=== PATIENT | female | born 1970 | race Caucasian/White ===

== ENCOUNTER → 2017-06-29 | Outpatient (CLI) | payer MEDICARE, OTHER ==
[~2017-06-29] MED LIST: AMOCLA500 PO; ASCO500 PO; CIPR500 PO; FERR325 PO; LACTOBACILLUS PO; LISI20 PO; LISI5 PO; METO50 PO; NITR100 PO; PANT40 PO; [UNRECOGNIZED DRUG - OTHER]; [UNRECOGNIZED DRUG - REMARK]
== END ==
LOC: LAB SHORT 15:56 → LAB 15:56
PROVIDERS: Nurse Practitioner Women's Health
DX: Z12.4 Encounter for screening for malignant neoplasm of cervix (principal)
CPT/HCPCS: 87624; G0123

== ENCOUNTER 2021-01-11 20:44 | Emergency (ER) | payer MEDICARE, OTHER ==
[~2021-01-11] VITALS: Ht 170.2 cm; Wt 90.7 kg
[~2021-01-11 20:44] MED LIST changes: -LISI20 PO; -PANT40 PO
[2021-01-11 21:42] LABS: BASOPHILS ABSOLUTE AUTO 0.01 K/mm3 (0.00-0.23); BASOPHILS PERCENT AUTO 0 % (0-2); EOSINOPHILS PERCENT AUTO 0 % (0-6); Hematocrit 35.1 % (33.0-51.0); Hemoglobin 11.4 g/dL (11.5-16.0); IMMATURE GRAN ABSOLUTE AUTO 0.03 K/mm3 (0.00-0.10); IMMATURE GRAN PERCENT AUTO 1 % (0-1); LYMPHOCYTES ABSOLUTE AUTO 0.49 K/mm3 (0.84-5.20); LYMPHOCYTES PERCENT AUTO 9 % (21-46); MONOCYTES ABSOLUTE AUTO 0.15 K/mm3 (0.16-1.47); MONOCYTES PERCENT AUTO 3 % (4-13); Mean Corpuscular HGB 26.7 pg (26.0-34.0); Mean Corpuscular HGB Conc 32.5 g/dL (31.5-36.5); Mean Corpuscular Volume 82 fL (80-100); Mean Platelet Volume 10.3 fL (9.1-12.4); NEUTROPHILS ABSOLUTE AUTO 4.96 K/mm3 (1.96-9.15); NEUTROPHILS PERCENT AUTO 88 % (41-73); Platelet Count 125 K/mm3 (150-400); RDW Coefficient Variation 13.9 % (11.7-14.2); RDW Standard Deviation 41.9 fL (35.1-46.3); Red Blood Cell Count 4.27 M/mm3 (3.80-5.20); White Blood Cell Count 5.64 K/mm3 (4.00-11.30)
[2021-01-11 21:55] LABS: Alanine Aminotransfer (ALT/SGP 49 U/L (12-78); Albumin, Blood 2.5 g/dL (3.4-5.0); Albumin/Globulin Ratio 0.6 (0.8-1.8); Alk Phos 76 U/L (50-136); Anion Gap 9 mmol/L (6-16); Aspartate Aminotrans (AST/SGOT 62 U/L (12-37); Bilirubin, Total 0.4 mg/dL (0.1-1.0); Blood Urea Nitrogen 29 mg/dL (8-24); Bun/Creatinine Ratio 25.9 (12.0-20.0); CO2, Blood 22 mmol/L (21-32); Calcium, Blood 8.2 mg/dL (8.5-10.1); Chloride, Blood 104 mmol/L (98-108); Creatinine, Blood 1.12 mg/dL (0.40-1.00); Globulin, Blood 4.5 g/dL (2.2-4.0); Glomerular Filtration Rate 51 (60-); Glucose, Blood 114 mg/dL (70-99); Potassium, Blood 4.1 mmol/L (3.5-5.5); Sodium, Blood 135 mmol/L (136-145); Troponin I <0.015 ng/mL (0.000-0.040)
[2021-01-11 22:33] LABS: SARS-Cov-2 (COVID-19) PCR, MMC POSITIVE (NEGATIVE)
[2021-01-11] MEDS ORDERED: CEPH500 PO (23:56)
[2021-01-13] MEDS ORDERED: TROSPIUM CHLORI20 M1 PO (14:22)
[2021-01-13] MEDS ORDERED: METO25 PO (14:22)
[2021-01-13] MEDS ORDERED: PANT40 PO (14:23)
[2021-01-13] MEDS ORDERED: Prinivil10 MG PO (14:23)
[2021-01-13] MEDS ORDERED: Nitrofurantoin100 M1 PO (14:24)
[2021-01-13] MEDS ORDERED: cranberry PO (15:27)
[2021-01-13] MEDS ORDERED: NAPR220 PO (15:27)
[2021-01-13] MEDS ORDERED: glucosamine PO (15:28)
== END 2021-01-12 04:30 | disposition home or self-care (01) ==
LOC: ER 20:44
PROVIDERS: Emergency Medicine
DX: U07.1 COVID-19 (principal); N39.0 Urinary tract infection, site not specified; Z79.899 Other long term (current) drug therapy; I10 Essential (primary) hypertension
CPT/HCPCS: 71045; 80053; 83880; 84484; 85025; 93005; 93010; 99285-25; A9270; P9612; U0004

== ENCOUNTER 2021-01-13 11:47 | Inpatient (IN) | payer MEDICARE, OTHER ==
[~2021-01-13] VITALS: Ht 165.1 cm; Wt 99.9 kg
[~2021-01-13 11:47] MED LIST changes: +CEPH500 PO
[2021-01-13 12:54] LABS: BASOPHILS ABSOLUTE AUTO 0.02 K/mm3 (0.00-0.23); BASOPHILS PERCENT AUTO 0 % (0-2); EOSINOPHILS PERCENT AUTO 0 % (0-6); Hematocrit 36.9 % (33.0-51.0); Hemoglobin 11.9 g/dL (11.5-16.0); IMMATURE GRAN ABSOLUTE AUTO 0.11 K/mm3 (0.00-0.10); IMMATURE GRAN PERCENT AUTO 1 % (0-1); LYMPHOCYTES ABSOLUTE AUTO 0.56 K/mm3 (0.84-5.20); LYMPHOCYTES PERCENT AUTO 7 % (21-46); MONOCYTES ABSOLUTE AUTO 0.24 K/mm3 (0.16-1.47); MONOCYTES PERCENT AUTO 3 % (4-13); Mean Corpuscular HGB 26.7 pg (26.0-34.0); Mean Corpuscular HGB Conc 32.2 g/dL (31.5-36.5); Mean Corpuscular Volume 83 fL (80-100); Mean Platelet Volume 10.2 fL (9.1-12.4); NEUTROPHILS ABSOLUTE AUTO 7.72 K/mm3 (1.96-9.15); NEUTROPHILS PERCENT AUTO 89 % (41-73); Platelet Count 181 K/mm3 (150-400); RDW Coefficient Variation 14.1 % (11.7-14.2); RDW Standard Deviation 42.7 fL (35.1-46.3); Red Blood Cell Count 4.45 M/mm3 (3.80-5.20); White Blood Cell Count 8.65 K/mm3 (4.00-11.30)
[2021-01-13 13:02] LABS: Alanine Aminotransfer (ALT/SGP 49 U/L (12-78); Albumin/Globulin Ratio 0.4 (0.8-1.8); Alk Phos 108 U/L (50-136); Anion Gap 13 mmol/L (6-16); Aspartate Aminotrans (AST/SGOT 53 U/L (12-37); Bilirubin, Total 0.5 mg/dL (0.1-1.0); Blood Urea Nitrogen 29 mg/dL (8-24); Bun/Creatinine Ratio 47.1 (12.0-20.0); CO2, Blood 18 mmol/L (21-32); Calcium, Blood 6.5 mg/dL (8.5-10.1); Chloride, Blood 106 mmol/L (98-108); Creatinine, Blood 0.62 mg/dL (0.40-1.00); Ferritin, Serum 854 ng/mL (8-252); Globulin, Blood 5.3 g/dL (2.2-4.0); Glomerular Filtration Rate >60 (60-); Glucose, Blood 115 mg/dL (70-99); Lactate Dehydrogenase (Ld),Bld 607 U/L (100-240); Potassium, Blood 4.1 mmol/L (3.5-5.5); Sodium, Blood 137 mmol/L (136-145); Total Protein, Blood 7.3 g/dL (6.4-8.2)
[2021-01-13] MEDS ORDERED: METO25 PO (14:22)
[2021-01-13] MEDS ORDERED: TROSPIUM CHLORI20 M1 PO (14:22)
[2021-01-13] MEDS ORDERED: PANT40 PO (14:23)
[2021-01-13] MEDS ORDERED: Prinivil10 MG PO (14:23)
[2021-01-13] MEDS ORDERED: Nitrofurantoin100 M1 PO (14:24)
[2021-01-13] MEDS ORDERED: NAPR220 PO (15:27)
[2021-01-13] MEDS ORDERED: AZO CRANBERRY PO (15:27)
[2021-01-13] MEDS ORDERED: GLUCOSAMINE-CH1 EAC7 PO (15:28)
--- NOTE | 2021-01-13 18:44 | NUR ---
PATIENT ARRIVED TO UNIT APPROX 1700. SHE IS A PARAPLEGIC PARALYZED BELOW THE WAIST. PATIENT LIVES ALONE. SHE IS ABLE TO MANAGE COOKING COLEANING AND ALL HER ADL'S BY HERSELF. SHE HAS A MOM AND STEPDAD HER ASSIST HER SOMETIMES HOWEVER THEY HAVE COVID AND ARE UNABLE TO ASSIST HER NOW. SHE IS AO X 3. PATIENT DENIES ANY PAIN OR DISCOMFORT. SHE IS ON 4 LITERS O2. SHE TAKES HER PILLS WITH WATER. HAS ONE IV 20 GAUGE IN HER RIGHT FOREARM. PATIENT HAS A LARGE DECUBITUS ULCER ON HER LEFT BUTTOCK PICS ARE TAKEN AND WILL BE PLACED IN HER CHART. SHE HAS TWO SMALL SORES ON HER BILATERAL HIPS THAT ARE AT BELT LINE. PICS ARE TAKEN ALSO. REPORT AND HAND OFF TO [facility] RN AT SHIFT CHANGE.
[2021-01-13 22:47] LABS: Source, Urine Clean Catch
[2021-01-13 22:53] LABS: Bilirubin, Urine Neg (Neg); Blood, Urine 1+ (Neg); Glucose Qualitative, Urine Neg (Neg); Ketones, Urine Neg (Neg); Leukocyte Esterase, Urine 1+ (Neg); Nitrite, Urine Neg (Neg); Protein, Urine 2+ (Neg); Urobilinogen, Urine NORM (Normal)
[2021-01-13 22:55] LABS: Appearance, Urine Clear (Clear); Color, Urine Yellow (P-Yellow)
[2021-01-13 22:59] LABS: Red Blood Cells, Urine 0-2 /hpf (0-2); Squamous Epithelial Cells Few /hpf (Few)
[2021-01-13 23:00] LABS: Bacteria Few /hpf
--- NOTE | 2021-01-14 04:23 | NUR ---
SHIFT SUMMARY A/OX4, PLEASANT AND COOPERATIVE WITH CARE. PARAPLEGIC, W/C BOUND AT BASELINE. PT LIVES AT HOME ALONE. DECUBUTIS ULCER TO BUTTOCKS UPON ADMIT, PICTURES IN CHART. MARCELO PATENT AND DRAINING TO GRAVITY. CURRENTLY ON 4L VIA NC. VSS, NO ACUTE CHANGES AT THIS TIME. BED IN LOWEST POSITION WITH CALL LIGHT IN REACH. WILL CONTINUE TO MONITOR AND REPORT TO ONCOMING RN.
[2021-01-14 04:36] LABS: Hematocrit 35.5 % (33.0-51.0); Hemoglobin 11.3 g/dL (11.5-16.0); Mean Corpuscular HGB 26.2 pg (26.0-34.0); Mean Corpuscular HGB Conc 31.8 g/dL (31.5-36.5); Mean Corpuscular Volume 82 fL (80-100); Mean Platelet Volume 9.6 fL (9.1-12.4); Platelet Count 182 K/mm3 (150-400); RDW Coefficient Variation 14.2 % (11.7-14.2); RDW Standard Deviation 42.6 fL (35.1-46.3); Red Blood Cell Count 4.31 M/mm3 (3.80-5.20); White Blood Cell Count 5.42 K/mm3 (4.00-11.30)
[2021-01-14 05:20] LABS: Anion Gap 10 mmol/L (6-16); Blood Urea Nitrogen 20 mg/dL (8-24); Bun/Creatinine Ratio 29.3 (12.0-20.0); CO2, Blood 20 mmol/L (21-32); Chloride, Blood 108 mmol/L (98-108); Creatinine, Blood 0.68 mg/dL (0.40-1.00); Glomerular Filtration Rate >60 (60-); Glucose, Blood 134 mg/dL (70-99); Potassium, Blood 4.6 mmol/L (3.5-5.5); Sodium, Blood 138 mmol/L (136-145)
--- NOTE | 2021-01-14 18:30 | NUR ---
DAY SHIFT SUMMARY. PATIENT HAD BED BATH TODAY. SHE WORKED WITH BOTH PT AND OT. SHE TOLERATED MOVING WELL. SATS WERE DROPPING INTO THE HIGH 70'S ON 4 LITERS. OXYMIZER WAS BROUGHT TO ROOM AND PAITENT NOW ON 10 LITERS OXYMIZER. WHEN SHE SITS STRAIGHT UP IN BED HER SATS TEND TO DROP INTO THE HIGH 80'S. SHE IS AO X 4 HAS PLEASANT AFFECT AND IS COOPERATIAVE WITH CARE. DRESSING TO LEFT BUTTOCK REMAINS CLEAN DRY AND INTACT. WILL CONTINUE TO MONITOR THIS PATIENT CLOSELY UNTIL HAND OFF AT SHIFT CHANGE.
--- NOTE | 2021-01-15 06:50 | NUR ---
THREAD PULLING MACHINE ATTENDANT SUMMARY patient struggled with her high flow 02 a good part of the night. she was able to maintain her saturations betweek 90-93% on 9 liters until she started falling asleep. Janice had no complaints of pain, just dry mouth and throat. This RN called RT about putting a bubbler on her o2 for comfort. around this time, the patient's 02 needs began to increase. RT was called again, and 02 was increased from 10 - 15 liters. with high flow and a non re breather mask. At the end of the shift, patient wasa wearing a BIPAP machine with settings of 18/10, resp of 16 and 90%. Janice stated she was ok and comfortable wearing the mask. saturations have elevated to 95-98%
--- NOTE | 2021-01-15 17:01 | NUR ---
SUMMARY- PT A/O X4, TAKEN OFF BIPAP THIS AM FOR BREAKFAST ONTO HIGHFLOW 15L. DR TEJEDA INSTRUCTED TO PLACE PT ON HUMIDIFIED HIGHFLOW, PT STARTED AT 30%/80L FLOW AND WEANED DOWN THROUGHOUT THE DAY TO 30/60 AND SATTING 95%- DESATS TO 85% AT THE LOWEST WITH EXERTIONAL ACTIVITY TURNING IN BED AND RECOVERS IN A FEW MINUTES. PT LUNGS HAVE CRACKLES BIBASILAR, HAS A DRY COUGH STATES NOT MUCH PRODUCTION. PT HAS MEPILEX INTACT TO L GLUT. GIVEN BED BATH AND LININ CHANGE, PT VERY EXHAUSTED WITH MIN ACTIVITY. LIMITED PT/OT TO BED STRENGTH TRAINING. GIVEN SENOKOT TO STIM BM, LAST BM 01/10, WILL WIVE OIL ENEMA THIS PM TO AID IN MOVEMENT. PT STATES SHE WAITS ABOUT 5 DAYS AT HOME AND DOES A SELF DIGBM REMOVAL.
--- NOTE | 2021-01-16 04:00 | NUR ---
summary pt continues to be constipated despite ordered tx. pt bowels tones are present and have increased during shift. pt reports passing gas. pt breathing is better with periods of exertional sob. pt spo2 >90. pt call light in reach.
--- NOTE | 2021-01-16 08:00 | NUR ---
PT PLEASANT COOP A/O X3, PARAPLEGIC. STATES NO FEELING DISTAL OF BELLY BUTTON. FOOT DROP NOTED. P/P PRESENT BUT LIGHT. NO EDEMA NOTED. H/R REG, NO MURMER NOTED. NO TELE. LUNGS CRACKLES T/O PRESENTLY ON AIRVO SETTNGS. 30L / 70 FIO2. RESP EASY, UNLABORED. ABLE TO TALK NORMAL SENTENCES. PLEASANT. BT X4 LAST BM FEW DAYS, STATES ONLY MOVEMENTS 4-5 DAYS NORMAL. DUE NOW. VOIDS MARCELO CATH, DRAINING YELLOW FLUID. BED IN LOW POSITION, CALL LITE IN REACH, CALLS APPROP
[2021-01-16 09:01] LABS: BASOPHILS ABSOLUTE AUTO 0.03 K/mm3 (0.00-0.23); BASOPHILS PERCENT AUTO 0 % (0-2); EOSINOPHILS PERCENT AUTO 0 % (0-6); Hematocrit 37.9 % (33.0-51.0); Hemoglobin 12.1 g/dL (11.5-16.0); IMMATURE GRAN ABSOLUTE AUTO 0.26 K/mm3 (0.00-0.10); IMMATURE GRAN PERCENT AUTO 2 % (0-1); LYMPHOCYTES PERCENT AUTO 7 % (21-46); MONOCYTES ABSOLUTE AUTO 0.78 K/mm3 (0.16-1.47); MONOCYTES PERCENT AUTO 7 % (4-13); Mean Corpuscular HGB 26.2 pg (26.0-34.0); Mean Corpuscular HGB Conc 31.9 g/dL (31.5-36.5); Mean Corpuscular Volume 82 fL (80-100); Mean Platelet Volume 9.1 fL (9.1-12.4); NEUTROPHILS ABSOLUTE AUTO 10.04 K/mm3 (1.96-9.15); NEUTROPHILS PERCENT AUTO 84 % (41-73); Platelet Count 325 K/mm3 (150-400); RDW Standard Deviation 41.8 fL (35.1-46.3); Red Blood Cell Count 4.61 M/mm3 (3.80-5.20); White Blood Cell Count 11.91 K/mm3 (4.00-11.30)
[2021-01-16 09:17] LABS: Albumin, Blood 2.1 g/dL (3.4-5.0); Anion Gap 8 mmol/L (6-16); Blood Urea Nitrogen 24 mg/dL (8-24); Bun/Creatinine Ratio 40.1 (12.0-20.0); CO2, Blood 24 mmol/L (21-32); Calcium, Blood 8.9 mg/dL (8.5-10.1); Chloride, Blood 102 mmol/L (98-108); Glomerular Filtration Rate >60 (60-); Glucose, Blood 248 mg/dL (70-99); Phosphorus, Blood 2.6 mg/dL (2.5-4.9); Potassium, Blood 4.6 mmol/L (3.5-5.5); Sodium, Blood 134 mmol/L (136-145)
--- NOTE | 2021-01-16 13:20 | NUR ---
RT CAME FROM ROOM. PT O2 NEEDS INCREASING. MOVED FROM 30L TO 40L. 80% TO 100% FIO2. PT RESP WERE 28-30. NOW SOME BETTER AT 24-26. RT ASKS PT MOVED TO PCU. CALLED, AND SHE AGREES . CHARGE NOTIFIED. WILL NOTIFIY WHEN BED AVAIL.
--- NOTE | 2021-01-16 15:22 | NUR ---
LEAD WEB DEVELOPER CALLED, OKAYED MOVE TO ICU 11, NO BEDS IN PCU. DISCUSSED WITH PT TO UPDATE SITUATION. SHE STATES UNDERSTANDING. CALLED REPORT TO CAROL FORD RN. PT TRANSFERRED TO ICU AT 1450
--- NOTE | 2021-01-16 17:57 | NUR ---
PT. TRANSFERED FROM MEDICAL FLOOR AROUND 1600. ON AIRVO 40L 80%, DIMINISHED BREATH SOUNDS BILATERALLY. NONPRODUCTIVE COUGH, DESATS WITH COUGHING. RESPIRATORY RATE NORMAL NO SHORTNESS OF BREATH REPORTED. CT PE STUDY COMPLETED. TRANSPORTED ON NON-REBREATHER AT 15L. LEFT BUTTOCK WOUND CLEANSED AND DRESSED. A&O X4. PARAPLEGIC, MOVES BILATERAL UPPER EXTREMETIES EQUALLY. TURNED Q2. SINUS RHYTHM. HYPERTENSIVE - TREATED WITH HYDRALAZINE. NO COMPLAINTS OF PAIN. MARCELO CATHATER DRAINING CLEAR YELLOW URINE. NO BM THIS SHIFT. PO FLUIDS ENCOURAGED.
--- NOTE | 2021-01-17 00:42 | NUR ---
SAMANTHA WAS TURNED AGAIN AND EXPRESSED HER DESIRE FOR PAIN MEDICATION HER LOW BACK WAS HURTING, SHE ONLY HAD TYLENOL ON HER MAR SO WAS CALLED. HE ORDERED FENTANYL FOR HER. SHE SAID SHE DID BELIEVE AT SOME POINT SHE HAD SOME FENTANYL BUT SHE DIDN'T REALLY REMEMBER. FENTANYL 50MCG GIVEN PER ORDER. WILL CONTINUE TO WATCH HER BREATHING AND SATURATIONS. NO OTHER CHANGES FROM HER INITIAL ASSESSMENT.
[2021-01-17 03:54] LABS: BASOPHILS ABSOLUTE AUTO 0.03 K/mm3 (0.00-0.23); BASOPHILS PERCENT AUTO 0 % (0-2); EOSINOPHILS ABSOLUTE AUTO 0.05 K/mm3 (0.00-0.68); EOSINOPHILS PERCENT AUTO 0 % (0-6); Hematocrit 37.1 % (33.0-51.0); Hemoglobin 11.9 g/dL (11.5-16.0); IMMATURE GRAN ABSOLUTE AUTO 0.35 K/mm3 (0.00-0.10); IMMATURE GRAN PERCENT AUTO 3 % (0-1); LYMPHOCYTES PERCENT AUTO 9 % (21-46); MONOCYTES PERCENT AUTO 5 % (4-13); Mean Corpuscular HGB 26.4 pg (26.0-34.0); Mean Corpuscular HGB Conc 32.1 g/dL (31.5-36.5); Mean Corpuscular Volume 82 fL (80-100); Mean Platelet Volume 8.8 fL (9.1-12.4); NEUTROPHILS ABSOLUTE AUTO 9.48 K/mm3 (1.96-9.15); NEUTROPHILS PERCENT AUTO 82 % (41-73); Platelet Count 303 K/mm3 (150-400); RDW Coefficient Variation 13.6 % (11.7-14.2); RDW Standard Deviation 40.7 fL (35.1-46.3); Red Blood Cell Count 4.51 M/mm3 (3.80-5.20); White Blood Cell Count 11.51 K/mm3 (4.00-11.30)
[2021-01-17 04:15] LABS: Anion Gap 6 mmol/L (6-16); Blood Urea Nitrogen 21 mg/dL (8-24); Bun/Creatinine Ratio 33.3 (12.0-20.0); CO2, Blood 27 mmol/L (21-32); Calcium, Blood 8.9 mg/dL (8.5-10.1); Chloride, Blood 100 mmol/L (98-108); Creatinine, Blood 0.63 mg/dL (0.40-1.00); Glomerular Filtration Rate >60 (60-); Glucose, Blood 126 mg/dL (70-99); Phosphorus, Blood 2.8 mg/dL (2.5-4.9); Potassium, Blood 4.6 mmol/L (3.5-5.5); Sodium, Blood 133 mmol/L (136-145)
--- NOTE | 2021-01-17 04:38 | NUR ---
SAMANTHA HAS DONE WELL SINCE RECEIVING THE FENTANYL, SHE HAS RESTED WELL EVEN WITH LAB DRAWS AND BODY SHIFTING. SHE SAID THE FENTANYL HAS IMPROVED THE PAIN IN HER BACK, SHE HAD KEPT HER SATS >90% WHILE SLEEPING WELL.
--- NOTE | 2021-01-17 06:11 | NUR ---
FARIHA HAS CONTINUED TO DO WELL WITH RESTING, SHE CONTINUES TO SAT WELL >90% SHE TOLERATES ORAL MEDS WELL, URINE OUTPUT GOOD, IV FLUSHES WELL. WILL REPORT OFF TO DAY SHIFT.
--- NOTE | 2021-01-17 09:28 | NUR ---
WENT INTO PATEINT ROOM AT 0740 AFTER REPORT FROM PIPELINE OPERATOR RN. PATIENT WAS IN QUITE A BIT OF PAIN 9/10 GENERALIZED ALL OVER. SHE WAS BOOSTED UP IN BED AND PUT SUPINE, RAISED HOB >30 FOR BREAKFAST. NEURO SHE IS INTACT, A & O. SHE IS A PARAPELEGIC AND DOES NOT MOVE BILAT LOWER EXTREMETIES. JENNIFER. CARDIAC IN NSR 80'S, BP 125/70. PPP. NO NOTED EDEMA. LUNGS ARE DIM THROUGH OUT. SHE IS ON HFNC 40 LITERS 80%. WITHOUT PAIN MEDS ON BOARD HER SPO2 86-88%, ONCE GIVEN PAIN MEDS HER SPO2 92-94%. HYPO ACTIVE BOWEL TONES, NO BM IN SEVERAL DAYS, GIVEN SENOKOT WITH MORNING TO HELP. SHE IS NOT VERY HUNGRY AND JUST PICK AT HER BREAKFAST. SHE WAS ENCOURAGED TO TRY AND EAT SOME PROTEIN. SHE HAS A MARCELO CATH IN PLACE, LIGHT YELLOW URINE IN BAG. SHE HAS A WOUND TO LEFT BUTTOCK THAT HAS A DRESSING IN PLACE. SHE IS NOTED TO HAVE FOOT DROP.
--- NOTE | 2021-01-17 13:35 | NUR ---
PT WORKING WITH PATIENT IN BED. SHE WAS PRE-MEDICATED 30 MINUTES PRIOR TO HELP WITH ACTIVITY.
--- NOTE | 2021-01-17 16:49 | NUR ---
NO REAL CHANGES DURNING THE DAY. WITH ACTIVITY PATIENT DESTATS DOWN TO ABOUT 88%. HER OXYGEN LEVELS ARE BETTER WHEN HER PAIN IS MANAGED. SHE HAS BEEN HAS RECIEVED 50 MCG FENTANYL IVP Q4 HR. ALSO, TYLENOL 650 MG PO Q6 HR. SHE WAS TURNED Q2 HR WITH HELP FROM LIFT. SHE HAS A LARGE BED SORE ON HER LEFT BUTTOCK DOWN A COUPLE LAYERS OF TISSUE. SHE GOT A BATH AND FULL LINEN CHANGE THIS AFTERTOON. SHE HAS VOIDED OVER 2 LITERS VIA F/C. NO FAMILY OR VISITORS TODAY.
--- NOTE | 2021-01-17 20:36 | NUR ---
RECEIVED REPORT FROM MARCI, PT WAS SITTING IN FRONT OF HER DINNER TRAY, FALLING ASLEEP, ASKED IF SHE WAS FINISHED AND SHE AGREED. REPOSITIONED HER, LUNGS DIMINISHED T/O, MOIST COUGH PRESENT WITH NO PRODUCTION. AIRVO 40L @ 80% VIA NOSE, PT C/O NOSE BEING DRY AND TENDER, SKIN AROUND HER MOUTH CONTINUES TO BE DRY, LOTION APPLIED AND CHAPSTICK GIVEN. PT STATES OVERALL BODY ACHES CONTINUE, IT IS NEW R/T ILLNESS. IV FLUIDS STOPPED FOR NOW. SITE FLUSHES WELL. MARCELO TO GRAVITY. DOES NOT WANT THE SUPPOSITORY YET.
--- NOTE | 2021-01-18 | NUR ---
SAMANTHA CONTINUES TO BE VERY SLEEPY, SHE AWAKENS AND COMMUNICATES BUT THEN RETURNS TO SLEEP. TAKING SIPS OF WATER WHEN TURNED. SATS REMAIN >89%.
[2021-01-18 03:20] LABS: BASOPHILS ABSOLUTE AUTO 0.03 K/mm3 (0.00-0.23); BASOPHILS PERCENT AUTO 0 % (0-2); EOSINOPHILS ABSOLUTE AUTO 0.01 K/mm3 (0.00-0.68); EOSINOPHILS PERCENT AUTO 0 % (0-6); Hematocrit 36.4 % (33.0-51.0); Hemoglobin 11.9 g/dL (11.5-16.0); IMMATURE GRAN PERCENT AUTO 4 % (0-1); LYMPHOCYTES ABSOLUTE AUTO 0.96 K/mm3 (0.84-5.20); LYMPHOCYTES PERCENT AUTO 9 % (21-46); MONOCYTES ABSOLUTE AUTO 0.45 K/mm3 (0.16-1.47); MONOCYTES PERCENT AUTO 4 % (4-13); Mean Corpuscular HGB 26.7 pg (26.0-34.0); Mean Corpuscular HGB Conc 32.7 g/dL (31.5-36.5); Mean Corpuscular Volume 82 fL (80-100); Mean Platelet Volume 9.2 fL (9.1-12.4); NEUTROPHILS ABSOLUTE AUTO 8.65 K/mm3 (1.96-9.15); NEUTROPHILS PERCENT AUTO 82 % (41-73); NRBC ABSOLUTE 0.02 K/mm3 (0.00-0.02); NRBC Auto 0.2 /100 WBC (0.0-0.2); Platelet Count 331 K/mm3 (150-400); RDW Coefficient Variation 13.5 % (11.7-14.2); RDW Standard Deviation 40.1 fL (35.1-46.3); Red Blood Cell Count 4.46 M/mm3 (3.80-5.20)
[2021-01-18 03:37] LABS: Albumin, Blood 2.1 g/dL (3.4-5.0); Anion Gap 6 mmol/L (6-16); Blood Urea Nitrogen 22 mg/dL (8-24); Bun/Creatinine Ratio 33.2 (12.0-20.0); CO2, Blood 29 mmol/L (21-32); Calcium, Blood 9.2 mg/dL (8.5-10.1); Chloride, Blood 100 mmol/L (98-108); Creatinine, Blood 0.66 mg/dL (0.40-1.00); Glomerular Filtration Rate >60 (60-); Glucose, Blood 120 mg/dL (70-99); Phosphorus, Blood 3.3 mg/dL (2.5-4.9); Potassium, Blood 4.4 mmol/L (3.5-5.5); Sodium, Blood 135 mmol/L (136-145)
--- NOTE | 2021-01-18 05:45 | NUR ---
SAMANTHA HAS BEEN SLEEPING THE ENTIRE SHIFT, SHE ASKED ONCE FOR PAIN MEDICATION ABOUT AN HOUR OR SO AGO. SHE OTHERWISE HAS REMAINED SLEEPING, EVEN WITH TURNS AND BLOOD DRAWS. VITALS HAVE REMAINED STABLE, CONTINUES ON AIRVO 40L, 80% WITH SATS >90%. SHE HAS BEEN TAKING IN SIPS OF WATER WITH EACH TURN. MARCELO WITH GOOD OUTPUT. CONTINUES WITHOUT A BOWEL MOVEMENT.
--- NOTE | 2021-01-18 09:15 | NUR ---
DR FREIRE ROUNDED, PATIENT REPORTS NOT SLEEPING LAST NIGHT
--- NOTE | 2021-01-18 14:53 | NUR ---
XRAY IN ROOM NOW
--- NOTE | 2021-01-18 17:55 | NUR ---
PCU STATUS, DROWSY THROUGHOUT THE DAY, REPORTS SHE DID NOT SLEEP AT ALL, MEDICATED WITH FENATNYL AND STARTED ON ULTRAM TODAY, POOR APPETITE, NO BM, MARCELO TO GRAVITY, DIMINSHED LS, COARSE WET, BS JUST THIS EVENING GREATER [id number], BUTTOCKS DRSG IN PLACE, PLEASANT TO CARE, ALERT AND ORIENTED X4, CALL LIGHT WITH IN REACH, WILL RELAY TO PM RN
--- NOTE | 2021-01-18 20:00 | NUR ---
SAMANTHA SAYS SHE IS TIRED, SHE EXPRESSES THAT SHE SLEPT HIT AND MISS LAST NIGHT AND IS TIRED. SHE WAS POSITIONED FAR ON HER LEFT SIDE. AIRVO CONT. 40L/80%. SATS >90%. BP SLIGHTLY ELEV. WILL CONT TO WATCH. LUNGS ARE COARSE/DIM, EASILY DESATURATES WITH MOVEMENT, SPEAKING. DIDN'T HAVE BM TODAY, WILL GIVE BOWEL CARE TONIGHT. CONTINUE TO REPOSITION OFTEN.
--- NOTE | 2021-01-18 22:38 | NUR ---
TURNED SAMANTHA TO HER FAR RIGHT SIDE AND SHE IS SATURATING AT 95%. MEDICATED FOR ALL OVER PAIN WITH ORAL MEDS PER MAR.
--- NOTE | 2021-01-19 01:03 | NUR ---
UPON ENTERING ROOM TO DO POSITION CHANGE, SAMANTHA COMPLAINED OF CHEST PAIN. HER BREATHING BECAME MORE RAPID, SHE WAS UNABLE TO CLEARLY DESCRIBE THE PAIN, JUST SAYING, "IT HURTS". HER RHYTHM WAS UNCHANGED, BP STABLE, SATS DECREASING WITH THE INCREASE IN BREATHING. DISCUSSED CHANGING HER TO THE BIPAP. CALLED LISETTE FROM [facility]. FOR ASSISTANCE, CALLED FOR MEDICINAL SUPPORT. AN ORDER WAS RECEIVED FOR ATIVAN IF NEEDED. WITH THE CHANGE TO BIPAP, HER SATS ARE 93%, SETTINGS 14/8 RATE 8, FIO2 60%. RESPIRATORY PATTERN IMPROVED, DOWN IN THE 20'S, UPON CHECKING ON HER AGAIN, SHE IS QUIET AND BREATHING LESS LABORED. WILL CONTINUE TO ASSESS AND MEDICATE IF NECESSARY.
[2021-01-19 03:56] LABS: BASOPHILS ABSOLUTE AUTO 0.02 K/mm3 (0.00-0.23); BASOPHILS PERCENT AUTO 0 % (0-2); EOSINOPHILS PERCENT AUTO 0 % (0-6); Hematocrit 36.9 % (33.0-51.0); Hemoglobin 12.1 g/dL (11.5-16.0); IMMATURE GRAN ABSOLUTE AUTO 0.45 K/mm3 (0.00-0.10); IMMATURE GRAN PERCENT AUTO 4 % (0-1); LYMPHOCYTES ABSOLUTE AUTO 0.78 K/mm3 (0.84-5.20); LYMPHOCYTES PERCENT AUTO 7 % (21-46); MONOCYTES PERCENT AUTO 5 % (4-13); Mean Corpuscular HGB 26.8 pg (26.0-34.0); Mean Corpuscular HGB Conc 32.8 g/dL (31.5-36.5); Mean Corpuscular Volume 82 fL (80-100); Mean Platelet Volume 9.1 fL (9.1-12.4); NEUTROPHILS ABSOLUTE AUTO 9.07 K/mm3 (1.96-9.15); NEUTROPHILS PERCENT AUTO 84 % (41-73); Platelet Count 374 K/mm3 (150-400); RDW Coefficient Variation 13.6 % (11.7-14.2); RDW Standard Deviation 39.9 fL (35.1-46.3); Red Blood Cell Count 4.52 M/mm3 (3.80-5.20); White Blood Cell Count 10.82 K/mm3 (4.00-11.30)
--- NOTE | 2021-01-19 03:56 | NUR ---
LAB WENT IN TO DRAW AND PATIENT WAS EXPRESSING CONCERN THAT SHE WASN'T GETTING ANY AIR AND THAT SHE WAS BREATHING VERY RAPIDLY. LAB CALLED R/T, I WENT IN WITH SOME MEDICATION AND REASSURANCE. PT IS NOW BREATHING EASIER AND SATS ARE 92%.
[2021-01-19 04:17] LABS: Albumin, Blood 2.2 g/dL (3.4-5.0); Anion Gap 7 mmol/L (6-16); Blood Urea Nitrogen 19 mg/dL (8-24); Bun/Creatinine Ratio 33.5 (12.0-20.0); CO2, Blood 29 mmol/L (21-32); Calcium, Blood 8.7 mg/dL (8.5-10.1); Chloride, Blood 98 mmol/L (98-108); Creatinine, Blood 0.57 mg/dL (0.40-1.00); Glomerular Filtration Rate >60 (60-); Glucose, Blood 144 mg/dL (70-99); Phosphorus, Blood 3.8 mg/dL (2.5-4.9); Potassium, Blood 4.8 mmol/L (3.5-5.5); Sodium, Blood 134 mmol/L (136-145)
--- NOTE | 2021-01-19 05:33 | NUR ---
SAMANTHA HAS BEEN RESTLESS, SHE TRANSITIONED FROM THE AIRVO TO THE BIPAP (12/10, RATE 14, FIO2 60%) SHE WAS MEDICATED FOR GENERALIZED PAIN AND FOR INCREASING ANXIETY R/T HER BREATHING. HER RESP RATE CLIMBS WITH HER RESTLESSNESS. SHE WAS ABLE TO TAKE IN SOME ENSURE AND FRUIT CUPS EARLY IN THE SHIFT AND HAD WATER EACH TIME SHE WAS REPOSITONED. WILL CONTINUE TO MONITOR FOR CHANGES.
--- NOTE | 2021-01-19 09:34 | NUR ---
MIN DROWSY, AWAKE MORE THAN PREVIOUSLY, EATING WITH A ENSURE, SWITCHED FROM BIPAP BACK TO HIGH FLOW, 60% 40 LITERS
--- NOTE | 2021-01-19 15:46 | NUR ---
Called to meet with Patient for support. Patient expressing some stress and fear. Patient is alert she is worried about her independence and her future. We reviewed her finaces her support and her family. Pt states family is watching her house her bills are paid and her mother and brother are great support. We discussed to trajectory of recovery from covid. WE talked about possible set backs and needs. She is not keen on going to rehab but is willing. Sdvised her if she goes and it is not for her she can go home. We discussed home health. Discussed the long recovery for most with covid. Stressed Rehab phase is ramírez to recovery so she does not loose ground. Symptom assessment pt denies headache. She denies nausea and pain. States her breathing is not tight but uncomfortable and takes some work. She doses off most of the time but feels she cannot really sleep. Denies spasms but hot flashes are bothering her. We discussed diversion she likes lavender and you tube videos. Jaiden not ask if she was claustrophobic. Suggested they open window and give her views of outside. Intesivist did not want discussion of code status at this time. Advised her to ask for our team to help if she is struggling and needs go express herself. Will attempt more theraputic time. Suggest after this event she get regular follow ups with a pulmonolgist.
--- NOTE | 2021-01-19 17:53 | NUR ---
PATIENT CONTINUED TO BE DROWSY, EASILY WAKES, MAKES NEEDS KNOWN, CALL LIGHT WITH IN REACH, DR ZAVALA CONSULTED FOR WORSENING CXRAY, HIGH FLOW 60% 40 LITERS, BECOMES TACHYPNEIC EASILY WITH ANXIETY AND PAIN, RESPS HIGH 40 TODAY, MEDICATED WITHJ ATIVAN AND THE RESPIRATIONS IMPROVED TO 20, DESATS DURING ANXIETY EPISODES AND RESOLVES WITH ATIVAN, VS REVIEWED, HELPFUL WITH REPOSITIONING, REFUSED BED BATH TODAY, POOR APPETITE, LAST BM 01/10/21, MEDICATED WITH SENNA THIS AM, PILLO RAYMOND, SINDY TO GRAVITY, WILL RELAY TO PM RN, WCTM
--- NOTE | 2021-01-19 19:30 | NUR ---
ASSUMED CARE OF PT, REPORT RECEIVED. PT IS NOTED RESTING QUIETLY AND APPEARS TO BE SLEEPING, HEATED HUMIDIFIED HIGH FLOW OXYGEN VIA BIPAP AT 40 L/MIN FIO2 60% SATS LOW 90S, RESP MID 20S. PRESSURES MAINTAINING STABLE. PT NOTED PCU STATUS, WILL MONITOR.
[2021-01-20 04:00] LABS: BASOPHILS ABSOLUTE AUTO 0.02 K/mm3 (0.00-0.23); BASOPHILS PERCENT AUTO 0 % (0-2); EOSINOPHILS PERCENT AUTO 0 % (0-6); Hematocrit 36.4 % (33.0-51.0); Hemoglobin 11.5 g/dL (11.5-16.0); IMMATURE GRAN ABSOLUTE AUTO 0.35 K/mm3 (0.00-0.10); IMMATURE GRAN PERCENT AUTO 4 % (0-1); LYMPHOCYTES ABSOLUTE AUTO 0.92 K/mm3 (0.84-5.20); LYMPHOCYTES PERCENT AUTO 11 % (21-46); MONOCYTES ABSOLUTE AUTO 0.58 K/mm3 (0.16-1.47); MONOCYTES PERCENT AUTO 7 % (4-13); Mean Corpuscular HGB 26.1 pg (26.0-34.0); Mean Corpuscular HGB Conc 31.6 g/dL (31.5-36.5); Mean Corpuscular Volume 83 fL (80-100); NEUTROPHILS ABSOLUTE AUTO 6.47 K/mm3 (1.96-9.15); NEUTROPHILS PERCENT AUTO 78 % (41-73); Platelet Count 419 K/mm3 (150-400); RDW Coefficient Variation 13.8 % (11.7-14.2); White Blood Cell Count 8.34 K/mm3 (4.00-11.30)
[2021-01-20 04:19] LABS: Albumin, Blood 2.1 g/dL (3.4-5.0); Anion Gap 3 mmol/L (6-16); Blood Urea Nitrogen 26 mg/dL (8-24); Bun/Creatinine Ratio 40.7 (12.0-20.0); CO2, Blood 31 mmol/L (21-32); Calcium, Blood 8.8 mg/dL (8.5-10.1); Chloride, Blood 99 mmol/L (98-108); Creatinine, Blood 0.64 mg/dL (0.40-1.00); Glomerular Filtration Rate >60 (60-); Glucose, Blood 132 mg/dL (70-99); Potassium, Blood 4.8 mmol/L (3.5-5.5); Sodium, Blood 133 mmol/L (136-145)
--- NOTE | 2021-01-20 06:08 | NUR ---
PT RESTS QUIETLY THROUGHOUT SHIFT, CONTINUES ON HEATED HUMIDIFIED HIGH FLOW OXYGEN VIA BIPAP AT 40 L/MIN AND 60% FIO2, SATS AND LUNG SOUNDS WITH SLIGHT IMPROVEMENT THIS SHIFT, PT STATES THAT BREATHING IS FEELING BETTER THIS AM. HEART RATE AND BLOOD PRESSURES REMAIN STABLE THROUGHOUT SHIFT. PAIN CONTROLLED WITH POSITION CHANGES AND ULTRAM ADMIN X 1. MIRALAX ADMIN FOR CONSTIPATION AT HS, NO BM THIS SHIFT. WILL CONT TO MONITOR AND REPORT TO NEXT SHIFT.
--- NOTE | 2021-01-20 08:48 | NUR ---
ASSUME CARE THIS AM: A&O AT BASELINE, WITHDRAWN. VITALS HRR SR 80'S BP SYSTOLIC 117, REMAINS ON HEATED HIFLO SETTINGS 40L 60% FIO2 SATS KEPT ABOVE 90% MILD SOB WITH EXERTION PT ABLE TO TOLERATE EATING WITHOUT DESATTING. PT DENIES ANY PAIN. REPOSITIONED IN BED FOR COMFORT. NO ISSUES WITH MED ADMINISTRATION, MARCELO DRAINING PATENT VIA GRAVITY. PT ABLE TO MAKE NEEDS KNOWN, COOPERATIVE WITH CARES WILL MONITOR
--- NOTE | 2021-01-20 19:10 | NUR ---
ASSUMED CARE OF PT, REPORT RECEIVED. PT IS NOTED TO CONTINUE ON HEATED HUMIDIFIED HIGH FLOW OXYGEN VIA BIPAP AT 40L/MIN AND 60%, SATS ARE MAINTAINING MID 90S OF THIS TIME, NO VISIBLE INCREASED WORK OF BREATHING IS NOTED, PT APPEARS TO BE RESTING QUIETLY RECLINING IN BED. MOST OF DINNER IS NOTED EATEN. WILL MONITOR.
--- NOTE | 2021-01-21 06:41 | NUR ---
PT AWAKE THIS SHIFT UNTIL AFTER 0230 THIS AM. CHIEF COMPLAINT HAS BEEN HEADACHE, TYLENOL WAS INEFFECTIVE FOR PAIN RELIEF. PT REPORTED GOOD PAIN RELIEF WITH ICE PACK AND REST. LUNG SOUNDS CONTINUE TO IMPROVE, OXYGEN REQUIREMENTS HAVE DECREASED THIS SHIFT, SATS CURRENTLY UPPER 90S, RESP RATE TEENS, NO VISIBLE INCREASED WORK OF BREATHING AT REST. PT DOES STATE THAT THROAT IS FEELING DRY AND SOMEWHAT SORE, WILL REQUEST THROAT LOZENGE ORDERS FROM HOSPITALIST STAFF. HEART RATE REMAINS 80S WITH STABLE PRESSURES. IMPROVED APPETITE IS NOTED. CONTINUES WITH GOOD URINE OUTPUT.
[2021-01-21 07:00] LABS: Albumin, Blood 2.2 g/dL (3.4-5.0); Anion Gap 5 mmol/L (6-16); Blood Urea Nitrogen 30 mg/dL (8-24); Bun/Creatinine Ratio 45.3 (12.0-20.0); CO2, Blood 29 mmol/L (21-32); Calcium, Blood 9.3 mg/dL (8.5-10.1); Chloride, Blood 98 mmol/L (98-108); Creatinine, Blood 0.66 mg/dL (0.40-1.00); Glomerular Filtration Rate >60 (60-); Glucose, Blood 112 mg/dL (70-99); Potassium, Blood 4.8 mmol/L (3.5-5.5); Sodium, Blood 132 mmol/L (136-145)
--- NOTE | 2021-01-21 10:42 | NUR ---
PATIENT REPORTS 10/10 PAIN FOR A HEADACHE, PATIENT REQUESTED BOTH TYLENOL AND A ULTRAM, ICE PACKX2 TO THE LEFT TEMPORAL, MAKES NEEDS KNOWN, CALL LIGHT WITH IN REACH, SWALLOWED MEDICATIONS WITHOUT DIFFICULTY, PATIENT REPORTS WANTING TO EAT LATER,
--- NOTE | 2021-01-21 17:56 | NUR ---
ALERT AND ORIENTED X4, MAKES NEEDS KNOWN, CALL LIGHT WIHT IN REACH, PATIENT ASSISTS TO RUN AND REPOSITION, NO EPISODES OF ANXIETY OR TACHYPNEA, MEDICATED FOR A THURMAN WITH ICE, TYLENOL, AND ULTRAM, LS DIMINSHED, ENCOURAGED DEEP BREATHING AND COUGHIN, HIGH FLOW 40L 50% SATS AT 93%, MARCELO TO GRAVITY, CLEAR YELLOW URINE, WORKED WITH OT TODAY, EATING DINNER NOW, WCTM
--- NOTE | 2021-01-22 06:13 | NUR ---
END OF SHIFT SUMMARY: PATIENT REMAINS A/O X4 AND HAS SLEPT MOST OF THE SHIFT. AIRVO WAS TITRATED DOWN TO 40L AND 40% AROUND 2029 AND SHE HAS DONE GREAT ALL NIGHT. SPOKE WITH EDWARD ABOUT HER DOING WELL AND CHANGING HER TO HF NC TODAY. SHE DID NOT WANT TO MAKE THE SWITCH TONIGHT AND FELT COMFORTABLE ON HER CURRENT O2 BUT NEW CANNULA IS AT BEDSIDE AND READY TO GO FOR TODAY. SHE ATE 100% OF DINNER AND SAID HER APPETITE HAS BEEN GETTING BETTER. TURNS Q2. NO AM LABS ORDERED FOR PATIENT
--- NOTE | 2021-01-22 07:12 | NUR ---
PATIENT SLEEPING IN ROOM, NO DISTRESS, CALL LIGHT WITH IN REACH
--- NOTE | 2021-01-22 08:45 | NUR ---
PATIENT WAKES EASILY AND THEN BACK TO SLEEP, PATIENT WANTING TO SLEEP MORE BEFORE AM MEDICATIONS, PATIENT AGREED TO TRY AGAIN IN THE NEXT HOUR, PLEASANT TO CARE, MAKES NEEDS KNOWN, CALL LIGHT WITH IN REACH
--- NOTE | 2021-01-22 11:51 | NUR ---
OT IN WORKING WITH PATIENT
--- NOTE | 2021-01-22 17:30 | NUR ---
alert and oriented to all, makes needs known, pleasant to care, no anxiety or tachypnea through the shift, high flow at 12, velázquez to gravity clear yellow, buttock drsg in place, patient ate 100% of lunch and dinner, worked with ot today, vs amber, will relay to pm rn, jamar
[2021-01-23 05:55] LABS: Albumin, Blood 2.7 g/dL (3.4-5.0); Anion Gap 8 mmol/L (6-16); Blood Urea Nitrogen 37 mg/dL (8-24); Bun/Creatinine Ratio 57.8 (12.0-20.0); CO2, Blood 27 mmol/L (21-32); Calcium, Blood 9.7 mg/dL (8.5-10.1); Chloride, Blood 97 mmol/L (98-108); Creatinine, Blood 0.64 mg/dL (0.40-1.00); Glomerular Filtration Rate >60 (60-); Glucose, Blood 108 mg/dL (70-99); Phosphorus, Blood 4.5 mg/dL (2.5-4.9); Potassium, Blood 4.6 mmol/L (3.5-5.5); Sodium, Blood 132 mmol/L (136-145)
--- NOTE | 2021-01-23 06:11 | NUR ---
END OF SHIFT SUMMARY: PATIENT WEANED OFF HF NC AND HAS BEEN ON ROOM AIR MOST OF THE SHIFT. SHE WAS PLACED BACK ON 2L WHEN SHE WAS IN DEEP SLEEP BUT OTHERWISE SHOWING MUCH IMPROVEMENT. DENIES SOB/CHEST DISCOMFORT. NO INCREASED WORK OF BREATHING WITNESSED EVEN WHEN TURNING IN BED. Q2 TURNS. SLEPT MOST OF THE NIGHT WITH HELP OF PRN MEDICATION. HR AND BP STABLE
--- NOTE | 2021-01-23 08:39 | NUR ---
ASSUMED PT CARE THIS AM. PT A/OX4, STATES SHE IS FEELING BETTER. PT TOLERATED BEING ON 2L-RA FOR MAJORITY OF NOC SHIFT PER REPORT. PT REPORTS MINIMAL DYSPNEA, STATES SHE HAS OCCASSIONAL PRODUCTIVE COUGH WITH BLOOD TINGE SPUTUM. PT ASSISTED TO REPOSITION, GOOD STRENGTH AND MOBILITY TO BUE. PT EATING BREAKFAST, TOLERATING WELL.
--- NOTE | 2021-01-23 15:53 | NUR ---
DIGITAL DISIMPACTION COMPLETED PT HAS NO HAD BM X 3 DAYS. 5 FORMED PELLETS EVACUATED. BED BATH PROVIDED. PLAN TO GET PT UP TO CHAIR FOR DINNER VIA SLING.
--- NOTE | 2021-01-23 17:42 | NUR ---
SHIFT SUMMARY PT A/OX4, WORKED WITH PHYSICAL THERAPY FOR STRENGTH AND MOBILITY. VSS THROUGHOUT SHIFT. PT ON 2 LNC, SATS 94% AND GREATER, ON RA FOR PART OF SHIFT SATS REMAIN 94% ADN ABOVE, BUT PT REPORTS FEELING SOB, 2 LNC PLACED FOR PT COMFORT ON REQUEST. IN TO EVAL PT, DOWNGRADED TO M/S STATUS, NO TELE. PT EATING WELL. GOOD UO. DIGITAL DISIMPACTION TODAY NO BM FOR 3 DAYS. PLAN TO GET PT UP TO RECLINER CHAIR VIA SWING, HOWEVER PT DECLINED. WILL ATTEMPT AGAIN TOMORROW.
[2021-01-24 04:37] LABS: Hematocrit 38.6 % (33.0-51.0); Hemoglobin 12.3 g/dL (11.5-16.0); Mean Corpuscular HGB 26.8 pg (26.0-34.0); Mean Corpuscular HGB Conc 31.9 g/dL (31.5-36.5); Mean Corpuscular Volume 84 fL (80-100); Mean Platelet Volume 8.9 fL (9.1-12.4); Platelet Count 518 K/mm3 (150-400); RDW Coefficient Variation 13.6 % (11.7-14.2); RDW Standard Deviation 40.9 fL (35.1-46.3); Red Blood Cell Count 4.59 M/mm3 (3.80-5.20); White Blood Cell Count 11.54 K/mm3 (4.00-11.30)
[2021-01-24 04:54] LABS: Albumin, Blood 2.5 g/dL (3.4-5.0); Anion Gap 7 mmol/L (6-16); Blood Urea Nitrogen 34 mg/dL (8-24); Bun/Creatinine Ratio 58.7 (12.0-20.0); CO2, Blood 26 mmol/L (21-32); Calcium, Blood 9.6 mg/dL (8.5-10.1); Chloride, Blood 98 mmol/L (98-108); Creatinine, Blood 0.58 mg/dL (0.40-1.00); Glomerular Filtration Rate >60 (60-); Glucose, Blood 111 mg/dL (70-99); Phosphorus, Blood 4.2 mg/dL (2.5-4.9); Potassium, Blood 4.7 mmol/L (3.5-5.5); Sodium, Blood 131 mmol/L (136-145)
--- NOTE | 2021-01-24 06:32 | NUR ---
END OF SHIFT SUMMARY: VITALS STABLE. ROOM AIR. Q2 TURNS AND SLEPT A DECENT AMOUNT OVERNIGHT. SAYS SHE WANTS TO BE MORE MOBILE TODAY AND WOULD LOVE TO TRY AND GET TO A CHAIR TODAY.
--- NOTE | 2021-01-24 08:52 | NUR ---
ASSUMED PT CARE. PT A/OX4, STATES SHE IS FEELING WORSE TODAY THAN YESTERDAY. 02 85% ON RA, PLACED ON 2 L NC, O2 88%, INCREASED TO 4 LNC, SATS 91%. PT ENCOURAGED TO TCDB. PLAN TO GET PT UP TO CHAIR VIA CEILING LIFT TODAY TO MAXIMIZE MOBILITY AND PROMOTE MOBILIZATION OF RESP SECRETIONS. PT AGREEABLE TO THIS PLAN. SUPPLEMENTS ADDED TO MED MANAGEMENT, INCLUDING STOOL SOFTENERS. ACETAMINOPHEN GIVEN FOR C/O GENERALIZED PAIN.
--- NOTE | 2021-01-24 18:20 | NUR ---
SHIFT SUMMARY PT A/OX4, FELT DYSPNEIC THIS AM, BUT IMPROVED RESP STATUS AND WELL BEING BY END OF SHIFT. PT ON 2 LNC, SATS 95% AND GREATER. PT UP TO CHAIR VIA SLING FOR 2 HRS, WORKED WITH PHYS THERAPY AND OT. REPORTS FEELING CLOSER TO HER BASELINE. VSS, AFEBRILE. REINFORCED TEACHING ON DAILY GOALS WITH MOBILITY, AND COUGH/DEEP BREATHING. ACETAMINOPHEN GIVEN X 1. PT TOLERATING DIET, GOOD UO. BED BATH GIVEN, TURNED Q 2 HRS. PT ON STOOL SOFTENERS. NEEDS DIGITAL DISIMPACTION EVERY OTHER DAY.
--- NOTE | 2021-01-24 20:00 | NUR ---
Report recv'd and assumed care. Denies any needs or concerns. Report called to Chuyita RN on medical floor. Patient transferred via bed with O2 @ 2L NC with surgical mask and isolation precautions.
--- NOTE | 2021-01-25 05:08 | NUR ---
SHIFT SUMMARY PT. WAS TRANSFERED FROM ICU AT THE START OF THIS SHIFT. PT. IN ISOLATION FOR POSITIVE COVID. PARAPALEGIC WAIST DOWN AND TWO PERSON ASSIST WITH Q2 TURNING. AOX4, PLEASANT AND DENIES NEED FOR O2 THIS SHIFT. VS WNL AND MEDICATED PER EMAR. WILL CONTINUE TO MONITOR UNTIL REPORT IS GIVEN.
[2021-01-25 10:21] LABS: Alanine Aminotransfer (ALT/SGP 63 U/L (12-78); Albumin, Blood 2.7 g/dL (3.4-5.0); Albumin/Globulin Ratio 0.6 (0.8-1.8); Alk Phos 83 U/L (50-136); Anion Gap 9 mmol/L (6-16); Aspartate Aminotrans (AST/SGOT 20 U/L (12-37); Bilirubin, Total 0.4 mg/dL (0.1-1.0); Blood Urea Nitrogen 41 mg/dL (8-24); Bun/Creatinine Ratio 61.8 (12.0-20.0); C-REACTIVE PROTEIN, EXT RANGE <0.290 mg/dL (0.000-0.300); CO2, Blood 25 mmol/L (21-32); Calcium, Blood 9.6 mg/dL (8.5-10.1); Chloride, Blood 96 mmol/L (98-108); Creatinine, Blood 0.66 mg/dL (0.40-1.00); Globulin, Blood 4.6 g/dL (2.2-4.0); Glomerular Filtration Rate >60 (60-); Glucose, Blood 141 mg/dL (70-99); Magnesium, Blood 1.9 mg/dL (1.6-2.4); Potassium, Blood 4.3 mmol/L (3.5-5.5); Sodium, Blood 130 mmol/L (136-145); Total Protein, Blood 7.3 g/dL (6.4-8.2)
[2021-01-25 16:35] LABS: BASOPHILS ABSOLUTE AUTO 0.01 K/mm3 (0.00-0.23); BASOPHILS PERCENT AUTO 0 % (0-2); EOSINOPHILS PERCENT AUTO 0 % (0-6); Hematocrit 36.8 % (33.0-51.0); Hemoglobin 11.9 g/dL (11.5-16.0); IMMATURE GRAN ABSOLUTE AUTO 0.14 K/mm3 (0.00-0.10); IMMATURE GRAN PERCENT AUTO 1 % (0-1); LYMPHOCYTES ABSOLUTE AUTO 0.85 K/mm3 (0.84-5.20); LYMPHOCYTES PERCENT AUTO 9 % (21-46); MONOCYTES ABSOLUTE AUTO 0.66 K/mm3 (0.16-1.47); MONOCYTES PERCENT AUTO 7 % (4-13); Mean Corpuscular HGB 26.8 pg (26.0-34.0); Mean Corpuscular HGB Conc 32.3 g/dL (31.5-36.5); Mean Corpuscular Volume 83 fL (80-100); Mean Platelet Volume 8.8 fL (9.1-12.4); NEUTROPHILS PERCENT AUTO 83 % (41-73); Platelet Count 471 K/mm3 (150-400); RDW Coefficient Variation 13.8 % (11.7-14.2); Red Blood Cell Count 4.44 M/mm3 (3.80-5.20); White Blood Cell Count 9.96 K/mm3 (4.00-11.30)
--- NOTE | 2021-01-25 18:11 | NUR ---
PT AOX4 AND COOPERATIVE OF CARE. PT DOING WELL AND O2 MAINTAINING WITHIN SET PARAMETERS. NO DISTRESS NOTED AND PT IS TURNED EVERY TWO HOURS. PT IS ABLE TO LET HER NEEDS KNOWN. PT WAS ASKED ABOUT THE NEED FOR A BOWEL MOVEMENT AND PT STATED SHE DID NOT FEEL SHE NEEDED TO HAVE ONE TODAY. PT DENIES PAIN AND HAS CALL LIGHT WITHIN REACH. WILL CONTINUE TO MONITOR.
[2021-01-26 05:17] LABS: BASOPHILS ABSOLUTE AUTO 0.01 K/mm3 (0.00-0.23); BASOPHILS PERCENT AUTO 0 % (0-2); EOSINOPHILS PERCENT AUTO 0 % (0-6); Hematocrit 35.8 % (33.0-51.0); Hemoglobin 11.6 g/dL (11.5-16.0); IMMATURE GRAN PERCENT AUTO 1 % (0-1); LYMPHOCYTES ABSOLUTE AUTO 1.37 K/mm3 (0.84-5.20); LYMPHOCYTES PERCENT AUTO 13 % (21-46); MONOCYTES ABSOLUTE AUTO 1.16 K/mm3 (0.16-1.47); MONOCYTES PERCENT AUTO 11 % (4-13); Mean Corpuscular HGB 26.9 pg (26.0-34.0); Mean Corpuscular HGB Conc 32.4 g/dL (31.5-36.5); Mean Corpuscular Volume 83 fL (80-100); Mean Platelet Volume 9.1 fL (9.1-12.4); NEUTROPHILS PERCENT AUTO 76 % (41-73); Platelet Count 445 K/mm3 (150-400); RDW Coefficient Variation 13.9 % (11.7-14.2); RDW Standard Deviation 40.7 fL (35.1-46.3); Red Blood Cell Count 4.32 M/mm3 (3.80-5.20); White Blood Cell Count 10.94 K/mm3 (4.00-11.30)
--- NOTE | 2021-01-26 05:24 | NUR ---
SHIFT SUMMARY PT. WAS PLEASANT AND ASSISTED WITH Q2 TURNS THIS SHIFT. PT. WAS SOB AND STILL REMAINS ON 3L OF 02. PAIN WAS MEDICATED PER EMAR AND A REQUEST FOR A BETTER SLEEP AID WAS ASKED FOR BY THE PT. HOWEVER, THE PT. RESTED SOME THIS SHIFT. PT. DROWSY AND DENIES ANY NEEDS AT THE MOMENT. WILL CONTINUE TO MONITOR UNTIL REPORT IS GIVEN.
[2021-01-26 06:08] LABS: Alanine Aminotransfer (ALT/SGP 55 U/L (12-78); Albumin, Blood 2.7 g/dL (3.4-5.0); Albumin/Globulin Ratio 0.7 (0.8-1.8); Alk Phos 88 U/L (50-136); Anion Gap 11 mmol/L (6-16); Aspartate Aminotrans (AST/SGOT 17 U/L (12-37); Bilirubin, Total 0.4 mg/dL (0.1-1.0); Blood Urea Nitrogen 35 mg/dL (8-24); Bun/Creatinine Ratio 55.9 (12.0-20.0); CO2, Blood 25 mmol/L (21-32); Calcium, Blood 9.4 mg/dL (8.5-10.1); Chloride, Blood 98 mmol/L (98-108); Creatinine, Blood 0.63 mg/dL (0.40-1.00); Globulin, Blood 3.9 g/dL (2.2-4.0); Glomerular Filtration Rate >60 (60-); Glucose, Blood 110 mg/dL (70-99); Potassium, Blood 4.4 mmol/L (3.5-5.5); Sodium, Blood 134 mmol/L (136-145); Total Protein, Blood 6.6 g/dL (6.4-8.2)
--- NOTE | 2021-01-26 16:46 | NUR ---
NO ACUTE CHANGES PT IS MAINTAINING ON 2.5L NC IN 90s. PT IS TURNED Q2HRS AND CAN CALL APPROPRIATELY. PT DENIES PAIN AND HAS CALL LIGHT WITHIN REACH. WILL CONTINUE TO MONITOR.
[2021-01-27 05:57] LABS: BASOPHILS ABSOLUTE AUTO 0.02 K/mm3 (0.00-0.23); BASOPHILS PERCENT AUTO 0 % (0-2); EOSINOPHILS PERCENT AUTO 0 % (0-6); Hematocrit 34.8 % (33.0-51.0); Hemoglobin 11.3 g/dL (11.5-16.0); IMMATURE GRAN ABSOLUTE AUTO 0.11 K/mm3 (0.00-0.10); IMMATURE GRAN PERCENT AUTO 1 % (0-1); LYMPHOCYTES ABSOLUTE AUTO 1.81 K/mm3 (0.84-5.20); LYMPHOCYTES PERCENT AUTO 13 % (21-46); MONOCYTES ABSOLUTE AUTO 1.67 K/mm3 (0.16-1.47); MONOCYTES PERCENT AUTO 12 % (4-13); Mean Corpuscular HGB Conc 32.5 g/dL (31.5-36.5); Mean Corpuscular Volume 83 fL (80-100); Mean Platelet Volume 8.9 fL (9.1-12.4); NEUTROPHILS ABSOLUTE AUTO 10.74 K/mm3 (1.96-9.15); NEUTROPHILS PERCENT AUTO 75 % (41-73); Platelet Count 431 K/mm3 (150-400); RDW Standard Deviation 41.1 fL (35.1-46.3); Red Blood Cell Count 4.18 M/mm3 (3.80-5.20); White Blood Cell Count 14.35 K/mm3 (4.00-11.30)
--- NOTE | 2021-01-27 06:11 | NUR ---
SHIFT SUMMARY PT. PLEASANT AND AOX4. PT. RESTED WELL ON 2.5L AND MEDICATED PER EMAR. DENIES ANY NEEDS AT THE MOMENT AND THIS NURSE WILL CONTINUE TO MONITOR UNTIL REPORT IS GIVEN.
[2021-01-27 06:36] LABS: Anion Gap 10 mmol/L (6-16); Blood Urea Nitrogen 32 mg/dL (8-24); Bun/Creatinine Ratio 51.5 (12.0-20.0); CO2, Blood 25 mmol/L (21-32); Calcium, Blood 9.5 mg/dL (8.5-10.1); Chloride, Blood 98 mmol/L (98-108); Creatinine, Blood 0.62 mg/dL (0.40-1.00); Glomerular Filtration Rate >60 (60-); Glucose, Blood 95 mg/dL (70-99); Potassium, Blood 4.3 mmol/L (3.5-5.5); Sodium, Blood 133 mmol/L (136-145)
--- NOTE | 2021-01-27 17:18 | NUR ---
NO ACUTE CHANGES. PT AOX4 AND COOPERATIVE OF CARE. PT MAINTAINING AT 2.5 L NC APPEARS UPBEAT AND PLEASANT. PT ABLE TO LET HER NEEDS KNOWN. NO DISTRESS NOTED AT THIS TIME CALL LIGHT WITHIN REACH WILL CONTINUE MONITOR.
--- NOTE | 2021-01-27 20:46 | NUR ---
PT. ON THE PHONE WITH FAMILY STAFF ATTEMPTED 3 TIMES FOR VITALS AND TO TURN. PT. REQUESTED STAFF AND THIS NURSE RETURN AT A LATER TIME.
--- NOTE | 2021-01-28 06:47 | NUR ---
SHIFT SUMMARY PT. AOX4 AND PLEASANT WITH NO S/S OF DISTRESS THIS SHIFT. PT. MEDICATED PER EMAR FOR PAIN AND ANXIETY. PT. WAS ABLE TO REST WELL AND HELP WITH TURNS THIS SHIFT. PT DENIES ANY NEEDS AT THE MOMENT WILL CONTINUE TO MONITOR UNTIL REPORT IS GIVEN.
--- NOTE | 2021-01-28 12:40 | NUR ---
PT HAD DIFFICULTY MOVING SELF ABOUT IN BED WHEN AROUSED THIS MORNING REPORTING SHE IS MUCH WEAKER THAN BASELINE. DISCHARGE ORDERS TO [facility]. REPORT CALLED TO [facility]SHAWN ALVARADO TO [facility] VIA W/C AFTER SLIM LIFT TRANSFER TO W/C. PT APPEARS ABLE TO MAINTAIN TRUNK UPRIGHT IN W/C. TO [facility] WITH O2 AT 2.5L/M.
[2021-01-28] MEDS ORDERED: Acerola C500 MG PO (16:44)
[2021-01-28] MEDS ORDERED: ACET325 PO (16:44)
[2021-01-28] MEDS ORDERED: OLUMIANT2 MG PO (16:45)
[2021-01-28] MEDS ORDERED: BENMENLOZ MT (16:48)
[2021-01-28] MEDS ORDERED: DEXA2 PO (16:50)
[2021-01-28] MEDS ORDERED: GUAI600T33 PO (16:51)
[2021-01-28] MEDS ORDERED: DOCU100 PO (16:51)
[2021-01-28] MEDS ORDERED: LORA.5 PO (16:53)
[2021-01-28] MEDS ORDERED: HUMALOG KW100 UNIT/1 SC (16:53)
[2021-01-28] MEDS ORDERED: MIRALAX17 GM PO (16:54)
[2021-01-28] MEDS ORDERED: ONDA4ODT MM (16:54)
[2021-01-28] MEDS ORDERED: MELATONIN5 M4 PO (16:54)
[2021-01-28] MEDS ORDERED: VISBIOME 112.51 EACH PO (16:55)
[2021-01-28] MEDS ORDERED: SENN187 PO (16:55)
[2021-01-28] MEDS ORDERED: TRAM50 PO (16:55)
[2021-01-28] MEDS ORDERED: VITAMIN D5000 UNIT PO (16:56)
[2021-01-28] MEDS ORDERED: ZINC220 PO (16:56)
[2021-01-28] MEDS ORDERED: XARELTO10 M1 PO (16:57)
== END 2021-01-28 11:53 | DRG 177 ==
LOC: ER 11:47 → ERHOLD 15:31 → ICUW 15:31 → MEDS 17:42 → ICUW 01-16 14:58 → MEDS 01-24 20:00 → ICUW 01-24 20:15 → MEDS 01-28 11:53
PROVIDERS: Emergency Medicine; Family Medicine; Nurse Practitioner Acute Care; ADMIT Internal Medicine
PROC: 8E0ZXY6 Isolation (ICD-10-PCS; 2021-01-13)
PROC: 3E0333Z Introduction of Anti-inflammatory into Peripheral Vein, Percutaneous Approach (ICD-10-PCS; 2021-01-13)
PROC: XW033E5 Introduction of Remdesivir Anti-infective into Peripheral Vein, Percutaneous Approach, New Technology Group 5 (ICD-10-PCS; 2021-01-13)
PROC: 5A09357 Assistance with Respiratory Ventilation, Less than 24 Consecutive Hours, Continuous Positive Airway Pressure (ICD-10-PCS; principal; 2021-01-14)
PROC: XW0DXM6 Introduction of Baricitinib into Mouth and Pharynx, External Approach, New Technology Group 6 (ICD-10-PCS; 2021-01-19)
DX: U07.1 COVID-19 (principal); J12.82 Pneumonia due to coronavirus disease 2019; J96.01 Acute respiratory failure with hypoxia; G82.20 Paraplegia, unspecified; E87.1 Hypo-osmolality and hyponatremia; E66.01 Morbid (severe) obesity due to excess calories; R73.9 Hyperglycemia, unspecified; D72.829 Elevated white blood cell count, unspecified; Z68.36 Body mass index [BMI] 36.0-36.9, adult; S24.103S Unspecified injury at T7-T10 level of thoracic spinal cord, sequela; N31.9 Neuromuscular dysfunction of bladder, unspecified; T38.0X5A Adverse effect of glucocorticoids and synthetic analogues, initial encounter; F41.9 Anxiety disorder, unspecified; K59.00 Constipation, unspecified; N32.81 Overactive bladder; K21.9 Gastro-esophageal reflux disease without esophagitis; R79.1 Abnormal coagulation profile; I10 Essential (primary) hypertension; Z79.899 Other long term (current) drug therapy; Z90.49 Acquired absence of other specified parts of digestive tract; Z98.890 Other specified postprocedural states
CPT/HCPCS: 36415; 71045; 71260; 80048; 80053; 80069; 81001; 82728; 82947; 83615; 83735; 84145; 85025; 85027; 85379; 86140; 87086; 93005; 93010; 94660; 94760; 94762; 96374; 96375; 97110; 97162; 97166; 97530; 97535; 99285-25; A9270; C1751; C9399; J0360; J0456; J0696; J1100; J1650; J1815; J2060; J3010; J7030; J7040; J7050; Q9967

== ENCOUNTER → 2021-02-18 | Outpatient (CLI) | payer MEDICARE, OTHER ==
[~2021-02-18] MED LIST changes: +ACET325 PO; +AZO CRANBERRY PO; +Acerola C500 MG PO; +BENMENLOZ MT; +DEXA2 PO; +DOCU100 PO; +GLUCOSAMINE-CH1 EAC7 PO; +GUAI600T33 PO; +HUMALOG KW100 UNIT/1 SC; +LORA.5 PO; +MELATONIN5 M4 PO; +METO25 PO; +MIRALAX17 GM PO; +NAPR220 PO; +Nitrofurantoin100 M1 PO; +OLUMIANT2 MG PO; +ONDA4ODT MM; +PANT40 PO; +Prinivil10 MG PO; +SENN187 PO; +TRAM50 PO; +TROSPIUM CHLORI20 M1 PO; +VISBIOME 112.51 EACH PO; +VITAMIN D5000 UNIT PO; +XARELTO10 M1 PO; +ZINC220 PO
[2021-02-18 16:05] LABS: Alanine Aminotransfer (ALT/SGP 25 U/L (12-78); Albumin, Blood 2.5 g/dL (3.4-5.0); Albumin/Globulin Ratio 0.7 (0.8-1.8); Alk Phos 94 U/L (50-136); Anion Gap 7 mmol/L (6-16); Aspartate Aminotrans (AST/SGOT 13 U/L (12-37); Bilirubin, Total 0.2 mg/dL (0.1-1.0); Blood Urea Nitrogen 29 mg/dL (8-24); Bun/Creatinine Ratio 62.1 (12.0-20.0); CO2, Blood 26 mmol/L (21-32); Calcium, Blood 8.9 mg/dL (8.5-10.1); Chloride, Blood 103 mmol/L (98-108); Creatinine, Blood 0.47 mg/dL (0.40-1.00); Globulin, Blood 3.8 g/dL (2.2-4.0); Glomerular Filtration Rate >60 (60-); Glucose, Blood 142 mg/dL (70-99); Potassium, Blood 4.3 mmol/L (3.5-5.5); Sodium, Blood 136 mmol/L (136-145); Total Protein, Blood 6.3 g/dL (6.4-8.2)
== END | disposition home or self-care (01) ==
LOC: LAB RH 14:02 → EDSTATUS 14:17
PROVIDERS: Internal Medicine
DX: U07.1 COVID-19 (principal)
CPT/HCPCS: 80053

== ENCOUNTER → 2021-02-25 | Outpatient (CLI) | payer MEDICARE, OTHER ==
[2021-02-25 13:32] LABS: BASOPHILS ABSOLUTE AUTO 0.03 K/mm3 (0.00-0.23); BASOPHILS PERCENT AUTO 0 % (0-2); EOSINOPHILS ABSOLUTE AUTO 0.04 K/mm3 (0.00-0.68); EOSINOPHILS PERCENT AUTO 1 % (0-6); Hematocrit 30.6 % (33.0-51.0); Hemoglobin 9.5 g/dL (11.5-16.0); IMMATURE GRAN ABSOLUTE AUTO 0.05 K/mm3 (0.00-0.10); IMMATURE GRAN PERCENT AUTO 1 % (0-1); LYMPHOCYTES ABSOLUTE AUTO 1.14 K/mm3 (0.84-5.20); LYMPHOCYTES PERCENT AUTO 15 % (21-46); MONOCYTES ABSOLUTE AUTO 0.79 K/mm3 (0.16-1.47); MONOCYTES PERCENT AUTO 10 % (4-13); Mean Corpuscular HGB 27.9 pg (26.0-34.0); Mean Corpuscular Volume 90 fL (80-100); Mean Platelet Volume 9.4 fL (9.1-12.4); NEUTROPHILS ABSOLUTE AUTO 5.55 K/mm3 (1.96-9.15); NEUTROPHILS PERCENT AUTO 73 % (41-73); Platelet Count 344 K/mm3 (150-400); RDW Coefficient Variation 18.4 % (11.7-14.2); RDW Standard Deviation 58.6 fL (35.1-46.3)
[2021-02-25 14:00] LABS: Alanine Aminotransfer (ALT/SGP 30 U/L (12-78); Albumin, Blood 2.5 g/dL (3.4-5.0); Albumin/Globulin Ratio 0.6 (0.8-1.8); Alk Phos 96 U/L (50-136); Anion Gap 4 mmol/L (6-16); Aspartate Aminotrans (AST/SGOT 13 U/L (12-37); Bilirubin, Total 0.3 mg/dL (0.1-1.0); Blood Urea Nitrogen 27 mg/dL (8-24); Bun/Creatinine Ratio 57.8 (12.0-20.0); CO2, Blood 29 mmol/L (21-32); Calcium, Blood 9.3 mg/dL (8.5-10.1); Chloride, Blood 105 mmol/L (98-108); Creatinine, Blood 0.47 mg/dL (0.40-1.00); Glomerular Filtration Rate >60 (60-); Glucose, Blood 107 mg/dL (70-99); Sodium, Blood 138 mmol/L (136-145); Total Protein, Blood 6.5 g/dL (6.4-8.2)
== END | disposition home or self-care (01) ==
LOC: LAB RH 12:29 → EDSTATUS 14:18
PROVIDERS: Internal Medicine
DX: U07.1 COVID-19 (principal)
CPT/HCPCS: 80053; 85025

== ENCOUNTER → 2022-06-04 | Outpatient (CLI) | payer MEDICARE, OTHER | END | disposition home or self-care (01) | LOC: LAB SHORT 12:00 | DX: L97.509 Non-pressure chronic ulcer of other part of unspecified foot with unspecified severity (principal) | CPT/HCPCS: 87070; 87075; 87077; 87186; 87205 ==

== ENCOUNTER → 2023-01-28 | Outpatient (CLI) | payer MEDICARE, OTHER | END | disposition home or self-care (01) | LOC: LAB SHORT 17:14 → LAB 17:14 | DX: L84 Corns and callosities (principal); L97.509 Non-pressure chronic ulcer of other part of unspecified foot with unspecified severity | CPT/HCPCS: 87070; 87077; 87186; 87205 ==

== ENCOUNTER 2023-03-06 19:40 | Emergency (ER) | payer MEDICARE, OTHER ==
[~2023-03-06] VITALS: Ht 170.2 cm; Wt 90.7 kg
[2023-03-06 20:20] VITALS: BP 113/67
[2023-03-06 20:56] LABS: Source, Urine Foley catheter
[2023-03-06 20:59] LABS: Bilirubin, Urine Neg (Neg); Blood, Urine 5+ (Neg); Glucose Qualitative, Urine Neg (Neg); Ketones, Urine Neg (Neg); Leukocyte Esterase, Urine 3+ (Neg); Nitrite, Urine Pos (Neg); Protein, Urine 3+ (Neg); Urobilinogen, Urine NORM (Normal); pH, Urine 6.5 (5.0-8.0)
[2023-03-06 21:03] LABS: Appearance, Urine Cloudy (Clear); Color, Urine Yellow (P-Yellow)
[2023-03-06 21:04] LABS: Red Blood Cells, Urine TNTC /hpf (0-2); White Blood Cells, Urine TNTC /hpf (0-5)
[2023-03-06 21:05] LABS: Bacteria Many /hpf; Squamous Epithelial Cells Few /hpf (Few); Transitional Epithelial Cells Few /hpf (0-Rare)
[2023-03-06] MEDS ORDERED: CEFP200 PO (22:30)
== END 2023-03-06 20:55 | disposition home or self-care (01) ==
LOC: ER 19:40
PROVIDERS: Emergency Medicine
DX: T83.021A Displacement of indwelling urethral catheter, initial encounter (principal); Z79.899 Other long term (current) drug therapy; Z79.4 Long term (current) use of insulin; I10 Essential (primary) hypertension
CPT/HCPCS: 51702; 81001; 87077; 87086; 87186; 99283-25

== ENCOUNTER → 2023-04-06 | Outpatient (CLI) | payer MEDICARE, OTHER ==
[~2023-04-06] MED LIST changes: +CEFP200 PO
== END ==
LOC: LAB 07:40 → LAB SHORT 07:40
DX: D75.89 Other specified diseases of blood and blood-forming organs (principal); D16.9 Benign neoplasm of bone and articular cartilage, unspecified; L97.509 Non-pressure chronic ulcer of other part of unspecified foot with unspecified severity; G82.20 Paraplegia, unspecified; M21.6X2 Other acquired deformities of left foot; M21.6X1 Other acquired deformities of right foot; M20.42 Other hammer toe(s) (acquired), left foot
CPT/HCPCS: 88305; 88311

== ENCOUNTER → 2023-04-06 | Outpatient (CLI) | payer MEDICARE, OTHER | LOC: LAB SHORT 17:32 → LAB 17:32 | DX: M20.41 Other hammer toe(s) (acquired), right foot (principal); M21.6X2 Other acquired deformities of left foot; M20.42 Other hammer toe(s) (acquired), left foot; G82.20 Paraplegia, unspecified; L97.509 Non-pressure chronic ulcer of other part of unspecified foot with unspecified severity; I73.01 Raynaud's syndrome with gangrene | CPT/HCPCS: 87070; 87205 ==

== ENCOUNTER → 2023-08-26 | Outpatient (CLI) | payer MEDICARE, OTHER | END | disposition home or self-care (01) | LOC: LAB SHORT 15:50 → LAB 15:50 | DX: R31.0 Gross hematuria (principal) | CPT/HCPCS: 87086 ==

== ENCOUNTER 2023-12-05 13:31 | Emergency (ER) | payer MEDICARE, OTHER ==
[~2023-12-05] VITALS: Ht 170.2 cm; Wt 90.7 kg
[2023-12-05 14:21] LABS: BASOPHILS ABSOLUTE AUTO 0.03 K/mm3 (0.00-0.23); BASOPHILS PERCENT AUTO 0 % (0-2); EOSINOPHILS ABSOLUTE AUTO 0.18 K/mm3 (0.00-0.68); EOSINOPHILS PERCENT AUTO 3 % (0-6); Hematocrit 39.8 % (33.0-51.0); Hemoglobin 12.9 g/dL (11.5-16.0); IMMATURE GRAN ABSOLUTE AUTO 0.02 K/mm3 (0.00-0.10); IMMATURE GRAN PERCENT AUTO 0 % (0-1); LYMPHOCYTES ABSOLUTE AUTO 1.11 K/mm3 (0.84-5.20); LYMPHOCYTES PERCENT AUTO 16 % (21-46); MONOCYTES ABSOLUTE AUTO 0.46 K/mm3 (0.16-1.47); MONOCYTES PERCENT AUTO 7 % (4-13); Mean Corpuscular HGB 26.9 pg (26.0-34.0); Mean Corpuscular HGB Conc 32.4 g/dL (31.5-36.5); Mean Corpuscular Volume 83 fL (80-100); Mean Platelet Volume 9.3 fL (9.1-12.4); NEUTROPHILS ABSOLUTE AUTO 5.06 K/mm3 (1.96-9.15); NEUTROPHILS PERCENT AUTO 74 % (41-73); Platelet Count 220 K/mm3 (150-400); RDW Coefficient Variation 16.3 % (11.7-14.2); White Blood Cell Count 6.86 K/mm3 (4.00-11.30)
[2023-12-05 14:41] LABS: Albumin, Blood 3.2 g/dL (3.4-5.0); Albumin/Globulin Ratio 0.8 (0.8-1.8); Bilirubin, Total 0.4 mg/dL (0.1-1.0); Bun/Creatinine Ratio 29.2 (12.0-20.0); Creatinine, Blood 0.51 mg/dL (0.40-1.00); Globulin, Blood 3.9 g/dL (2.2-4.0); Potassium, Blood 3.5 mmol/L (3.5-5.5); Total Protein, Blood 7.1 g/dL (6.4-8.2)
[2023-12-05 15:29] LABS: Source, Urine Foley catheter
[2023-12-05 15:43] LABS: Appearance, Urine Hazy (Clear); Bilirubin, Urine Neg (Neg); Blood, Urine 2+ (Neg); Color, Urine Yellow (P-Yellow); Glucose Qualitative, Urine Neg (Neg); Ketones, Urine Neg (Neg); Leukocyte Esterase, Urine 3+ (Neg); Nitrite, Urine Pos (Neg); Protein, Urine 1+ (Neg); Urobilinogen, Urine NORM (Normal)
[2023-12-05 15:55] LABS: Bacteria Many /hpf; Hyaline Casts 0-2 /lpf (0-2); Renal Epithelial Rare /hpf (0-Rare); Squamous Epithelial Cells Mod /hpf (Few); White Blood Cells, Urine 25-50 /hpf (0-5)
[2023-12-05 15:58] LABS: Mucus Light (0-Heavy); Triple Phosphate Crystals Many /hpf
[2023-12-05 16:41] VITALS: BP 172/91
== END 2023-12-05 16:42 | disposition home or self-care (01) ==
LOC: ER 13:31
PROVIDERS: Physician Assistant
DX: T83.091A Other mechanical complication of indwelling urethral catheter, initial encounter (principal); G82.20 Paraplegia, unspecified; Y73.8 Miscellaneous gastroenterology and urology devices associated with adverse incidents, not elsewhere classified; Z79.899 Other long term (current) drug therapy; Z79.4 Long term (current) use of insulin; Z79.02 Long term (current) use of antithrombotics/antiplatelets
CPT/HCPCS: 51702; 80053; 81001; 85025; 87077; 87086; 87186; 99283-25

== ENCOUNTER 2024-02-08 17:47 | Emergency (ER) | payer MEDICARE, OTHER ==
[~2024-02-08] VITALS: Ht 170.2 cm; Wt 90.7 kg
[2024-02-08 20:49] VITALS: BP 181/87
[2024-02-08] MEDS ORDERED: METO50 PO (20:50)
[2024-02-08 20:51] LABS: Source, Urine Foley catheter
[2024-02-08] MEDS ORDERED: FUROSEMIDE20 MG PO (20:51)
[2024-02-08] MEDS ORDERED: KLOR-CON 1010 ME9 PO (20:51)
[2024-02-08] MEDS ORDERED: DIAZEPAM5 M2 PO (20:52)
[2024-02-08] MEDS ORDERED: NITR100CA PO (20:53)
[2024-02-08] MEDS ORDERED: NAPR220 PO (20:57)
[2024-02-08 21:02] LABS: Bilirubin, Urine Neg (Neg); Blood, Urine 2+ (Neg); Glucose Qualitative, Urine Neg (Neg); Ketones, Urine Neg (Neg); Leukocyte Esterase, Urine 3+ (Neg); Nitrite, Urine Pos (Neg); Protein, Urine Neg (Neg); Urobilinogen, Urine NORM (Normal)
[2024-02-08 21:46] LABS: Appearance, Urine Hazy (Clear); Color, Urine Yellow (P-Yellow)
[2024-02-08 21:47] LABS: Red Blood Cells, Urine 0-2 /hpf (0-2)
[2024-02-08 21:48] LABS: Amorphous Light (0-Heavy); Bacteria Many /hpf; Squamous Epithelial Cells Mod /hpf (Few)
[2024-02-08] MEDS ORDERED: Cefdinir 300 MG Cap PO ONE (22:35)
[2024-02-08] MEDS ORDERED: CEFD300 PO (22:37)
== END 2024-02-08 23:05 | disposition home or self-care (01) ==
LOC: ER 17:47
PROVIDERS: Student in an Organized Health Care Education/Training Program
DX: T83.091A Other mechanical complication of indwelling urethral catheter, initial encounter (principal); N39.0 Urinary tract infection, site not specified; I10 Essential (primary) hypertension; Z79.4 Long term (current) use of insulin; Z79.899 Other long term (current) drug therapy
CPT/HCPCS: 51702; 81001; 87077; 87086; 87186; 99283; A9270

== ENCOUNTER → 2024-03-28 | Outpatient (CLI) | payer MEDICARE, OTHER ==
[~2024-03-28] MED LIST changes: +CEFD300 PO; +DIAZEPAM5 M2 PO; +FUROSEMIDE20 MG PO; +KLOR-CON 1010 ME9 PO; +NITR100CA PO
== END | disposition home or self-care (01) ==
LOC: LAB 17:38 → LAB SHORT 17:38
DX: L97.511 Non-pressure chronic ulcer of other part of right foot limited to breakdown of skin (principal)
CPT/HCPCS: 87070; 87205

== ENCOUNTER → 2024-04-06 | Outpatient (CLI) | payer MEDICARE, OTHER | END | disposition home or self-care (01) | LOC: LAB 18:04 → LAB SHORT 18:04 | DX: L89.610 Pressure ulcer of right heel, unstageable (principal) | CPT/HCPCS: 87070; 87075; 87077; 87186; 87205 ==

== ENCOUNTER 2024-09-29 18:15 | Emergency (ER) | payer MEDICARE, OTHER ==
[~2024-09-29] VITALS: Ht 170.2 cm; Wt 90.7 kg
[2024-09-29 18:23] VITALS: BP 147/79
[2024-09-29 20:22] LABS: Source, Urine Foley catheter
[2024-09-29 20:26] LABS: Bilirubin, Urine Neg (Neg); Glucose Qualitative, Urine Neg (Neg); Ketones, Urine Neg (Neg); Leukocyte Esterase, Urine 3+ (Neg); Protein, Urine 2+ (Neg); Specific Gravity, Urine 1.010 (1.003-1.022); Urobilinogen, Urine NORM (Normal)
[2024-09-29 20:44] LABS: Color, Urine Pale Yellow (P-Yellow)
[2024-09-29 20:46] LABS: White Blood Cells, Urine 25-50 /hpf (0-5)
[2024-09-29] MEDS ORDERED: CEFP200 PO (22:08)
== END 2024-09-29 22:09 | disposition home or self-care (01) ==
LOC: ER 18:15
PROVIDERS: Student in an Organized Health Care Education/Training Program
DX: T83.091A Other mechanical complication of indwelling urethral catheter, initial encounter (principal); N39.0 Urinary tract infection, site not specified; I10 Essential (primary) hypertension; Z79.4 Long term (current) use of insulin; Z79.899 Other long term (current) drug therapy
CPT/HCPCS: 51702; 51798; 81001; 87086; 99283-25; A9270

== ENCOUNTER 2025-02-25 18:02 | Emergency (ER) | payer MEDICARE, OTHER ==
[~2025-02-25] VITALS: Ht 170.2 cm; Wt 90.7 kg
[2025-02-25 19:03] VITALS: BP 172/123
[2025-02-25] MEDS ORDERED: Ketorolac Tromethamine 15mg Vial IM ONE (19:10)
[2025-02-25 22:12] LABS: Source, Urine Clean Catch
[2025-02-25 22:40] LABS: Bilirubin, Urine Neg (Neg); Glucose Qualitative, Urine Neg (Neg); Ketones, Urine Neg (Neg); Leukocyte Esterase, Urine 3+ (Neg); Protein, Urine 3+ (Neg); Specific Gravity, Urine 1.015 (1.003-1.022); Urobilinogen, Urine NORM (Normal)
[2025-02-25 22:55] LABS: Color, Urine Yellow (P-Yellow)
[2025-02-25 22:56] LABS: White Blood Cells, Urine TNTC /hpf (0-5)
[2025-02-25] MEDS ORDERED: CEPH500 PO (23:02)
== END 2025-02-25 23:36 | disposition home or self-care (01) ==
LOC: ER 18:02
PROVIDERS: Student in an Organized Health Care Education/Training Program
DX: T83.038A Leakage of other urinary catheter, initial encounter (principal); N39.0 Urinary tract infection, site not specified
CPT/HCPCS: 51702; 81001; 87077; 87086; 87186; 96372; 99283-25; A9270; J1885